=== PATIENT | female | born 1955 | race Caucasian/White ===

== ENCOUNTER 2019-01-27 10:15 | Inpatient (IN) ==
[2019-01-27] MEDS ORDERED: NS 1,000 ML IV ONE (10:20)
[2019-01-27] MEDS ORDERED: SOLU-MEDROL IV ONE (10:20)
[2019-01-27] MEDS ORDERED: ROCEPHIN 1 GM in NS 50 ML IV ONE (10:20)
[2019-01-27] MEDS ORDERED: DUONEB (A & A) INH ONE ×2 (10:20→10:55)
[2019-01-27] MEDS ORDERED: DUONEB (A & A) ONE (10:38)
[2019-01-27 10:49] LABS: BE 2.2 mmoll (-3.0-3.0); BLOOD TYPE ARTERIAL; HCO3-(ACT) 26.5 mmoll (20.0-26.0); METHB 1.2 % (0.0-1.5); O2(CT) 20.7 mL/dL (15.0-23.0); O2HB 93.4 % (95.0-99.0); PCO2(98.6) 35 mmHg (35-45); PO2(98.6) 73 mmHg (60-100); SAMPLE BLOOD; SAO2 96.1 % (95.0-100.0); THB 15.8 g/dL (11.5-17.4); pH(98.6) 7.47 (7.35-7.45)
[2019-01-27 10:51] LABS: ALLEN TEST YES; MODALITY CANNULA
[2019-01-27] MEDS ORDERED: PULMICORT INH ONE (10:55)
--- NOTE | 2019-01-27 11:01 | Diag Imaging Result Doc PS360 ---
EXAM: CHEST-PORTABLE 01/27/2019 HISTORY: cough TECHNIQUE: Erect AP portable at 1048 COMMENT: The inspiration is less optimal than on 10/26/2014. The opacity which was previously visible in the costophrenic angles has resolved. Otherwise are has been no significant change considering differences in technique. IMPRESSION: No acute disease. Electronically signed by Clyde Sandoval 01/27/2019 10:59 AM
[2019-01-27 11:04] LABS: BASO# 0.02 X1000 (0.0-0.2); BASO% 0.1 % (0.0-0.8); EOS# 0.06 X1000 (0.0-0.7); EOS% 0.4 % (0.0-10.0); HEMATOCRIT 44.5 % (37.0-47.0); HEMOGLOBIN 14.5 g/dL (12.0-16.0); IMM GRAN# 0.08 X1000 (0.0-0.04); IMM GRAN% 0.6 % (0.0-0.5); LYMPH# 2.41 X1000 (1.2-3.4); LYMPH% 17.6 % (20.5-51.1); MCH 29.8 PG (27-31); MCHC 32.6 g/dL (33-37); MCV 91.6 FL (81-99); MONO# 0.96 X1000 (0.11-0.59); MPV 9.5 FL (7.4-10.4); NEUT# 10.14 X1000 (1.4-6.5); NEUT% 74.3 % (42.2-75.2); PLT 385 X1000 (130-400); RBC 4.86 XMIL (4.2-5.4); RDW 12.7 % (11.5-14.5); WBC 13.67 X1000 (4.8-10.8)
[2019-01-27 11:25] LABS: AGAP 15; ALBUMIN 4.7 g/dL (3.5-5.0); ALKALINE PHOSPHATASE 132 U/L (32-104); BUN 21 mg/dL (8-22); CALCIUM 9.7 mg/dL (8.8-10.2); CHLORIDE 104 mmol/L (98-107); COSMO 287; CREATININE 0.7 mg/dL (0.5-0.9); ESTIMATED GFR > 60; GLUCOSE 106 mg/dL (70-104); GOT 15 U/L (10-30); GPT 15 U/L (10-36); POTASSIUM 3.9 mmol/L (3.5-5.1); SODIUM 142 mmol/L (136-145); TCO2 23 mmol/L (25-35); TOTAL PROTEIN 7.6 g/dL (6.3-8.3)
[2019-01-27] MEDS ORDERED: TYLENOL PO ONE (11:36)
--- NOTE | 2019-01-27 11:39 | PROVIDER DOCUMENTATION ---
This chart was entered by Kylie Nava Scribe, acting as scribe for Amelie Jewell MD. HPI-Respiratory General - General Stated Complaint: SOB Time Seen by Provider: 01/27/19 10:20 Source: patient Allergies/Adverse Reactions: Patient Allergies Allergy/AdvReac Type Severity Reaction Status Date / Time clarithromycin [From Biaxin] Allergy Intermediate RASH Verified 12/31/16 05:36 meperidine HCl * Allergy Intermediate RASH Verified 12/31/16 05:36 [From Demerol] nebivolol HCl * Allergy Intermediate RASH Verified 12/31/16 05:36 [From Bystolic] prochlorperazine edisylate * Allergy Intermediate RASH Verified 12/31/16 05:36 [From Compazine] prochlorperazine maleate * Allergy Intermediate RASH Verified 12/31/16 05:36 [From Compazine] nifedipine [From Procardia] Allergy SWELLING Verified 12/31/16 05:36 Sulfa (Sulfonamide Allergy RASH Verified 12/31/16 05:36 Antibiotics) Home Medications: Home Medication List Medication Instructions Recorded Confirmed Last Taken Type Diltiazem C.d. [Cardizem Cd] 240 mg PO DAILY 03/13/16 12/31/16 12/30/16 21:00 History Gabapentin 300 mg PO TID 03/13/16 12/31/16 12/30/16 21:00 History Pantoprazole [Protonix] 40 mg PO QHS 03/13/16 12/31/16 12/30/16 21:00 History Sertraline HCl [Zoloft] 100 mg PO BID 03/13/16 12/31/16 12/30/16 21:00 History Oxycodone HCl/Acetaminophen 1 each PO Q8H PRN PRN 12/29/16 12/31/16 12/30/16 14:00 History [Percocet 10-325 mg Tablet] Pregabalin [Lyrica] 75 mg PO BID 12/29/16 12/31/16 12/30/16 21:00 History Cyclobenzaprine [Flexeril] 10 mg PO Q8H PRN PRN #20 tablet 01/01/17 Unknown Rx Rivaroxaban [Xarelto] 10 mg PO DAILY@0600 #14 tablet 01/01/17 Unknown Rx - History of Present Illness-Resp Nature of Presenting Problem: Patient is a 63 year old female who presents with shortness of breath and cough. States symptoms stated 30 minutes ago. History of COPD. Reports she was recently diagnosed with bronchitis and COPD. States she is currently taking Levaquin, Medrol dose pack, and Albuterol breathing treatments. Quality of Pain: reports: none Severity in ED: reports: mild Onset/Duration: reports: 1/2 hour ago Timing: reports: still present Cough Quality/Degree: reports: moderate Current Respiratory Medication Therapy: Initiated see nurses note Associated Symptoms: reports: cough, shortness of breath Similar Symptoms Previously?: No Recently seen or treated by another doctor?: Yes Review of Systems - Adult - REVIEW OF SYSTEMS - ADULT ROS:: limited per condition Constitutional: reports: no symptoms reported Eyes: reports: no symptoms reported Ears, Nose, Mouth & Throat: reports: no symptoms reported Cardiovascular: reports: no symptoms reported Respiratory: reports: see HPI, cough, shortness of breath. denies: wheezing Gastrointestinal: reports: no symptoms reported Genitourinary: reports: no symptoms reported Musculoskeletal: reports: no symptoms reported Integumentary: reports: no symptoms reported Neurological: reports: no symptoms reported Psychiatric: reports: no symptoms reported Endocrine: reports: no symptoms reported Hematologic/Lymphatic: reports: no symptoms reported Allergic/Immunologic: reports: no symptoms reported All Other Systems: Reviewed and Negative Past History - Adult - PAST MEDICAL HISTORY-ADULT Review of Records: reports: Old Records Reviewed, Nursing Assessment Review, Medications Reviewed, Social history reviewed & non-contributory. Major Childhood Illnesses: reports: denies history Cardiovascular: reports: arrhythmia Respiratory: reports: denies history Gastrointestinal: reports: GERD Obstetrical/Gynecological: reports: denies history Genitourinary: reports: denies history Musculoskeletal: reports: denies history Neurological: reports: denies history Endocrine/Immune: reports: denies history Other Conditions: reports: denies history - PRIOR SURGERIES/PROCEDURES Surgical/Procedure History: reports: reviewed, not pertinent, cholecystectomy, hysterectomy - IMMUNIZATION STATUS Childhood Immunizations: See Nurse Assessment Flu Vaccine: See Nurse Assessment - FAMILY HISTORY Family History: reviewed, not pertinent - SOCIAL HISTORY Smoking: quit less than 1 year Substance Use: denies Physical Exam-General - PHYSICAL EXAM-ADULT Initial Vital Signs Reviewed: Yes - CONSTITUTIONAL General Appearance: alert, mild distress. negative: lethargic, obtunded - HEAD, EARS, NOSE, MOUTH & THROAT HENMT: normocephalic/atraumatic, moist mucous membranes. negative: angioedema - RESPIRATORY Respiratory: chest non-tender, respiratory distress (mild), wheezing (bilateral) . negative: accessory muscle use - CARDIOVASCULAR Cardiovascular: normal peripheral pulses, regular rate, rhythm. negative: tachycardia - GASTROINTESTINAL (ABDOMEN) Abdominal Exam: normal bowel sounds, non tender, soft. negative: guarding, rigid - MUSCULOSKELETAL Extremity: normal inspection. negative: erythema, tenderness - SKIN Integumentary: normal color, normal turgor, warm/dry. negative: cyanosis, pallor, rash - NEUROLOGIC Neurologic: grossly normal. negative: aphasia, facial droop - PSYCHIATRIC Psych/Mental Status: normal mood/affect, oriented x 3. negative: anxious Progress - PLAN OF CARE/RESULTS Progress/Plan/Lab Results: Vital Signs - 8 hr 01/27/19 10:16 01/27/19 10:25 01/27/19 11:02 Temperature 97.8 F Pulse Rate 96 H 100 H 86 Respiratory Rate 24 36 H 30 H Blood Pressure 160/90 O2 Sat by Pulse Oximetry 93 L 93 L Laboratory Results - last 24 hr 01/27/19 01/27/19 01/27/19 10:15 10:45 10:45 WBC 13.67 H RBC 4.86 Hgb 14.5 Hct 44.5 MCV 91.6 MCH 29.8 MCHC 32.6 L RDW Std Deviation 12.7 Plt Count 385 MPV 9.5 Immature Gran % (Auto) 0.6 H Neut % (Auto) 74.3 Lymph % (Auto) 17.6 L [place] % (Auto) 7.0 Eos % (Auto) 0.4 Baso % (Auto) 0.1 Immature Gran # (Auto) 0.08 H Neut # (Auto) 10.14 H Lymph # (Auto) 2.41 [place] # (Auto) 0.96 H Eos # (Auto) 0.06 Baso # (Auto) 0.02 Specimen Type ARTERIAL Sample Site L RADIAL pH 7.47 H pCO2 35 pO2 73 HCO3 26.5 H Base Excess 2.2 Oxyhemoglobin 93.4 L ABG O2 Sat (Calculated) 20.7 ABG O2 Saturation 96.1 ABG Carboxyhemoglobin 1.60 ABG Methemoglobin 1.2 Campbell Test YES A-a O2 Difference 83.0 Total Hemoglobin 15.8 Lactate 2.00 Liter Flow 2.0 Blood Gas Modality CANNULA FiO2 % 28.0 Sodium 142 Potassium 3.9 Chloride 104 Carbon Dioxide 23 L Anion Gap 15 BUN 21 Creatinine 0.7 Estimated GFR/1.73 m2 > 60 BUN/Creatinine Ratio 30 Glucose 106 H Calculated Osmolality 287 Calcium 9.7 Total Bilirubin 0.40 AST 15 ALT 15 Alkaline Phosphatase 132 H Total Protein 7.6 Albumin 4.7 Globulin 3.0 Albumin/Globulin Ratio 2.0 Plasma Lactate 01/27/19 10:45 WBC RBC Hgb Hct MCV MCH MCHC RDW Std Deviation Plt Count MPV Immature Gran % (Auto) Neut % (Auto) Lymph % (Auto) [place] % (Auto) Eos % (Auto) Baso % (Auto) Immature Gran # (Auto) Neut # (Auto) Lymph # (Auto) [place] # (Auto) Eos # (Auto) Baso # (Auto) Specimen Type Sample Site pH pCO2 pO2 HCO3 Base Excess Oxyhemoglobin ABG O2 Sat (Calculated) ABG O2 Saturation ABG Carboxyhemoglobin ABG Methemoglobin [place] Test A-a O2 Difference Total Hemoglobin Lactate Liter Flow Blood Gas Modality FiO2 % Sodium Potassium Chloride Carbon Dioxide Anion Gap BUN Creatinine Estimated GFR/1.73 m2 BUN/Creatinine Ratio Glucose Calculated Osmolality Calcium Total Bilirubin AST ALT Alkaline Phosphatase Total Protein Albumin Globulin Albumin/Globulin Ratio Plasma Lactate 2.2 Orders Category Date Time Status Oxygen Therapy- ED Nursing DIRECTED Care 01/27/19 10:35 Active Saline Loc NOW Care 01/27/19 10:20 Active CHEST-PORTABLE [RAD] Stat Exams 01/27/19 10:20 Completed ABG [RESP] Routine Lab 01/27/19 10:15 Completed BLOOD CULTURE [BLDCUL] Stat Lab 01/27/19 11:06 Ordered CBC WITH DIFF [HEME] Stat Lab 01/27/19 10:45 Completed COMPREHENSIVE METABOLIC PANEL [CHEM] Stat Lab 01/27/19 10:45 Completed LACTATE, PLASMA [CHEM] Stat Lab 01/27/19 10:45 Completed SPUTUM CULTURE WITH GRAM STAIN [RM] Routine Lab 01/27/19 11:06 Ordered 0.9% Sodium Chloride Inj [Ns] 1,000 ml Med 01/27/19 10:20 Discontinued IV 999 mls/hr Acetaminophen [Tylenol] Med 01/27/19 11:36 Discontinued 1,000 mg PO NOW ONE Albuterol 2.5MG/Ipratrop 0.5MG [Duoneb (A & A)] Med 01/27/19 10:20 Discontinued 3 ml INH NOW ONE Albuterol 2.5MG/Ipratrop 0.5MG [Duoneb (A & A)] Med 01/27/19 10:38 Discontinued 6 ml .ROUTE .STK-MED ONE Albuterol 2.5MG/Ipratrop 0.5MG [Duoneb (A & A)] Med 01/27/19 10:55 Discontinu ed 6 ml INH NOW ONE Budesonide [Pulmicort] Med 01/27/19 10:55 Discontinued 0.5 mg INH NOW ONE CefTRIAXONE [Rocephin] 1 gm Med 01/27/19 10:20 Discontinued 0.9% Sodium Chloride Inj [Ns] 50 ml IV NOW Methylprednisolone Sod Succ [Solu-Medrol] Med 01/27/19 10:20 Discontinued 125 mg IV NOW ONE Aerosol Treatments Routine Oth 01/27/19 10:21 Completed Aerosol Treatments Stat Oth 01/27/19 10:21 Completed Aerosol Treatments Stat Oth 01/27/19 10:55 Completed Pulse Oximetry Stat Oth 01/27/19 10:20 Completed Transfer/Admit Order [TRANSFER] Routine Transfer 01/27/19 11:35 Ordered Result Diagrams: 01/27/19 10:45 01/27/19 10:45 - REASSESSMENT Reassessment #1 Time Reassessed: 11:32 Status: improving (patient states she feels better. patient declined going to [place]. patient states she wants to stay in [place].) - EKG 1 Time of EKG reading by physician:: 10:21 EKG Read and Signed by:: Amelie Jewell EKG Interpretation (*Must complete 3 of following elements*): Normal Rate: 94 Rhythm: normal sinus rhythm with sinus arrhythmia [place]: normal [place] Interval: normal Comments: normal ECG - XRAY 1 XRAY Study: Chest Impression: See EMR Report ( EXAM: CHEST-PORTABLE 01/27/2019 HISTORY: cough TECHNIQUE: Erect AP portable at 1048 COMMENT: The inspiration is less optimal than on 10/26/2014. The opacity which was previously visible in the costophrenic angles has resolved. Otherwise are has been no significant change considering differences in technique. IMPRESSION: No acute disease. Electronically signed by Clyde Sandoval 01/27/2019 10:59 AM 01/27/19 1059 Interpreting Physician: Clyde Sandoval MD Dictated Date/Time: 01/27/19 1058 cc: Amelie Jewell MD; None,PCP) - CONSULTS/PCP/HOSPITALIST Notification #1 *Consult/PCP/Hospitalist*: Dr. Lua Time Discussed: 11:35 Reason/Comments: Dr. Jewell consulted with Dr. Lua about patient. Consult Disposition: Admit Departure - Departure Date of Disposition Decision: 01/27/19 Time of Disposition Decision: 11:38 DIAGNOSIS: COPD (chronic obstructive pulmonary disease) Qualifiers: COPD type: unspecified COPD Qualified Code(s): J44.9 - Chronic obstructive pulmonary disease, unspecified Disposition: ADMITTED INPATIENT 09 Certified Medical Emergency: Emergent Condition: Serious Referrals and Follow-Ups: None,PCP [Primary Care Provider] - - Critical Care Note This patient required my direct & personal management of CC.: No Attestation - Physician/ OLVIN Attestation Patient care was provided by Advanced Practice Provider:: No The physician spent face to face time with patient:: Yes Advanced Practice Provider documentation review:: Supervising physician onsite and consulted in the evaluation and care of this patient. The physician did have a face to face encounter with the patient. This chart was documented by the indicated scribe, (Kylie Nava Scribe) and accurately reflects the services I performed and decisions made by me, Amelie Jewell MD, as attested by the provider's signature.
[2019-01-27] MEDS ORDERED: ZOFRAN IV PRN (12:24)
[2019-01-27] MEDS ORDERED: TYLENOL PO PRN (12:24)
--- NOTE | 2019-01-27 13:46 | EKG Report ---
Test Performed on : 01/27/2019 10:21:35 AM Test Reason : ER Blood Pressure : / mmHG Vent. Rate : 094 BPM Atrial Rate : 094 BPM P-R Int : 132 ms QRS Dur : 072 ms QT Int : 364 ms P-R-T Axes : 078 046 072 degrees QTc Int : 455 ms Normal sinus rhythm. with sinus arrhythmia. Normal ECG When compared with ECG of 29-DEC-2016 09:19, Vent. rate has increased BY 31 BPM Unconfirmed Result
[2019-01-27] MEDS ORDERED: ROCEPHIN 1 GM in NS 50 ML IV SCH ×2 (15:45→16:00)
[2019-01-27] MEDS: PERCOCET-10 PO PRN ×2 (15:52→23:58)
[2019-01-27] MEDS: DUONEB (A & A) INH SCH ×3 (16:04→22:45)
[2019-01-27] MEDS ORDERED: ZITHROMAX 500 MG/NS 500 MG/250 ML IVPB IV SCH (17:00)
[2019-01-27] MEDS: SOLU-MEDROL IV SCH (18:09)
--- NOTE | 2019-01-27 19:58 | HISTORY AND PHYSICAL ---
PRIMARY CARE PHYSICIAN: None. CHIEF COMPLAINT: Shortness of breath and a cough that began 30 minutes prior to arrival, but also states she was recently diagnosed with a COPD and bronchitis exacerbation. HISTORY OF PRESENTING ILLNESS: This is a 63-year-old female who presents to [facility] ER with complaints of shortness of breath and a cough that began approximately 30 minutes prior to arriving. She was recently diagnosed with a bronchitis, was placed on Levaquin, a Medrol Dosepak and albuterol breathing treatments, but has not seen much improvement in her symptoms. The shortness of breath worsened about 30 minutes prior to arriving. She was saturating 93% on 2 L. White blood cell count was 13.67. Her chest x-ray showed no acute disease. So, she will be admitted for a COPD exacerbation for further evaluation and treatment. PAST MEDICAL HISTORY: Of a sinus arrhythmia, COPD, PTSD, biliary colic, GERD, and bronchitis. PAST SURGICAL HISTORY: Hysterectomy, cholecystectomy, bilateral knee arthroscopy, a right shoulder arthroscopy and multiple benign breast tumor removals. FAMILY HISTORY: Her father of lung cancer at 61 and mother of Alzheimer's at 87. SOCIAL HISTORY: She currently lives with her . States that she stop smoking 2 weeks ago but smoked a pack of cigarettes a day and has done so for the past 49 years. Denies any alcohol or illicit drug use. ALLERGIES: To Compazine, Demerol, Bystolic, sulfa, Procardia and Biaxin. HOME MEDICATIONS: She takes Cardizem CD 240 mg p.o. at bedtime, Protonix 40 mg p.o. at bedtime, Zoloft 100 mg p.o. b.i.d., Chantix 1 mg p.o. b.i.d., and Percocet 10 one p.o. q.8 hours p.r.n. LABORATORY DATA: Showed a white blood cell count of 13.67, hemoglobin 14.5, hematocrit 44.5, platelets 385,000. ABG with a pH of 7.47, pCO2 of 35, PO2 73, bicarb 26.5, and this was on 2 L via nasal cannula. Sodium 142, potassium 3.9, chloride 104, CO2 23, BUN of 21, creatinine 0.7, glucose 106. Plasma lactate of 2.2. EKG: Normal sinus rhythm with a sinus arrhythmia at 94. Chest x-ray showed no acute disease. REVIEW OF SYSTEMS: She denied any fever, chills, blurred vision, dizziness. She was positive for shortness of breath and a nonproductive cough. Denied any abdominal pain, constipation, diarrhea, burning or hurting with urination. PHYSICAL EXAMINATION: VITAL SIGNS: On arrival she had a temperature of 97.8 degrees, pulse 96, respirations 24, blood pressure 160/90, saturating 93% on 2 L. GENERAL: This is a 63-year-old female who is lying in the bed and answers questions appropriately. HEENT: Normocephalic, atraumatic. Normal ENT inspection. Oropharynx and nares are clear. EYES: Pupils are equal, round, reactive to light and accommodation. Extraocular movements are intact. NECK: Normal inspection. Normal range of motion. LUNGS: With rhonchi and wheezing throughout posterior lung benoit. Equal lung expansion. Chest wall movement noted. O2 via nasal cannula currently in use. HEART: Regular rate and rhythm. No murmurs, rubs, or gallops. ABDOMEN: Soft, nontender, nondistended. Bowel sounds are present x4 quadrants. MUSCULOSKELETAL: She had 5/5 strength x4 extremities. NEUROLOGICAL: The cranial nerves 2-12 appear grossly intact. ASSESSMENT: 1. An acute chronic obstructive pulmonary disease exacerbation with failed outpatient treatment. 2. Mild leukocytosis, which may be secondary to her previous steroid use. 3. Tobacco abuse. PLAN: She will be admitted to the medical unit, placed on telemetry, O2 per protocol, incentive spirometry, CPT routine. Sputum culture and blood cultures x2 are pending. We will place her on Rocephin 1 gram IV q.24, azithromycin 500 IV q.24, Solu-Medrol 80 mg IV q.8 hours and will wean as she improves. We will recheck a CBC and BMP in the a.m. and further orders after seen by attending. Dictated by KELLEY Butler for Dontae Lua MD cc: KELLEY Butler MD
--- NOTE | 2019-01-27 20:30 | HISTORY AND PHYSICAL ---
Patient came in with shortness of breath for the last several days, COPD history. She has been on Levaquin, Medrol. There was some discussion that she had a productive cough, but she denies a productive cough. That is also what she told the nurse practitioner. So, in any case, she is a patient of Dr. Pearson, but she wanted to be admitted here. 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 In any case, she will be admitted for COPD exacerbation, bronchitis, breathing treatments, steroids, IV antibiotics. We will follow clinically. She does have significant wheezing on exam. We have encouraged cessation of smoking. Continue regular medicines and follow. cc: MD Dr. Michel Chicas
[2019-01-27] MEDS: ZOLOFT PO SCH (22:11)
[2019-01-27] MEDS: PROTONIX PO SCH (22:11)
[2019-01-27] MEDS: CARDIZEM CD PO SCH (22:11)
[2019-01-27] MEDS: PATIENT'S OWN MED PO SCH (22:12)
[2019-01-28] MEDS: DUONEB (A & A) INH SCH ×6 (02:34→22:42)
[2019-01-28] MEDS: SOLU-MEDROL IV SCH ×4 (03:12→17:13)
[2019-01-28 07:23] LABS: AGAP 13; BUN 16 mg/dL (8-22); CALCIUM 9.5 mg/dL (8.8-10.2); CHLORIDE 106 mmol/L (98-107); COSMO 288; CREATININE 0.6 mg/dL (0.5-0.9); ESTIMATED GFR > 60; GLUCOSE 240 mg/dL (70-104); POTASSIUM 3.7 mmol/L (3.5-5.1); SODIUM 140 mmol/L (136-145); TCO2 21 mmol/L (25-35)
[2019-01-28 07:25] LABS: BASO# 0.01 X1000 (0.0-0.2); EOS# 0.01 X1000 (0.0-0.7); HEMATOCRIT 40.7 % (37.0-47.0); HEMOGLOBIN 13.1 g/dL (12.0-16.0); IMM GRAN% 0.5 % (0.0-0.5); LYMPH# 0.99 X1000 (1.2-3.4); LYMPH% 4.7 % (20.5-51.1); MCH 30.1 PG (27-31); MCHC 32.2 g/dL (33-37); MCV 93.6 FL (81-99); MONO# 0.54 X1000 (0.11-0.59); MONO% 2.5 % (1.7-9.3); NEUT# 19.57 X1000 (1.4-6.5); NEUT% 92.3 % (42.2-75.2); PLT 293 X1000 (130-400); RBC 4.35 XMIL (4.2-5.4); RDW 12.8 % (11.5-14.5); WBC 21.22 X1000 (4.8-10.8)
[2019-01-28] MEDS: PATIENT'S OWN MED PO SCH ×2 (08:51→20:38)
[2019-01-28] MEDS: ROCEPHIN 1 GM in NS 50 ML IV SCH ×2 (08:51→13:09)
[2019-01-28] MEDS: ZOLOFT PO SCH ×2 (08:52→20:37)
[2019-01-28] MEDS: PERCOCET-10 PO PRN ×2 (08:52→16:44)
[2019-01-28 09:02] LABS: BANDS 1 % (0-1); LYMPHS 5 % (21-51); MONO 2 % (1-9); SEGS 92 % (42-75)
[2019-01-28] MEDS ORDERED: EXCEDRIN MIGRAINE PO ONE (10:55)
[2019-01-28] MEDS: ROBITUSSIN PO PRN ×2 (13:25→20:37)
[2019-01-28] MEDS ORDERED: TORADOL IV ONE (16:41)
[2019-01-28] MEDS ORDERED: FIORICET PO PRN (16:41)
[2019-01-28] MEDS: CARDIZEM CD PO SCH (20:37)
[2019-01-28] MEDS: PROTONIX PO SCH (20:37)
[2019-01-28] MEDS: TORADOL IV PRN (23:25)
[2019-01-29] MEDS: SOLU-MEDROL IV SCH ×2 (00:36→09:06)
[2019-01-29] MEDS: PERCOCET-10 PO PRN ×2 (01:04→09:06)
[2019-01-29] MEDS: DUONEB (A & A) INH SCH ×3 (02:48→11:23)
[2019-01-29 07:59] VITALS: BP 139/66
[2019-01-29] MEDS: TORADOL IV PRN (09:06)
[2019-01-29] MEDS: PATIENT'S OWN MED PO SCH (09:06)
[2019-01-29] MEDS: ZOLOFT PO SCH (09:06)
--- NOTE | 2019-01-30 08:23 | DISCHARGE SUMMARY ---
ADMISSION DATE: 01/27/2019 DISCHARGE DATE: 01/29/2019 PRIMARY CARE PHYSICIAN: None. ADMISSION DIAGNOSES: 1. Acute chronic obstructive pulmonary disease exacerbation with failed outpatient treatment. 2. Mild leukocytosis which may be secondary to her previous steroid use. 3. Tobacco abuse. DISCHARGE DIAGNOSES: 1. Acute chronic obstructive pulmonary disease exacerbation with failed outpatient treatment. 2. Mild leukocytosis which may be secondary to her previous steroid use. 3. Tobacco abuse. SUMMARY OF FINDINGS: This is a 63-year-old female who presented to the Emergency Room with complaints of shortness of breath and a cough that worsened over the 30 minutes prior to arriving but had recently been diagnosed with a bronchitis and had been placed on Levaquin and a Medrol Dosepak along with some albuterol breathing treatments but did not see much improvement in her symptoms. She was sating 93% on 2 L when she arrived. Her white blood cell count was 13.67 but again that is most likely because of her previous steroid use. Chest x-ray showed no acute disease. She was admitted and placed on O2 per protocol, incentive spirometry, CPT, IV antibiotics, and IV steroids, weaned as she improves. She is feeling much better now, sating 94% on room air, and it is now felt that she can safely be discharged home. DISCHARGE MEDICATIONS: Included her Cardizem CD 240 mg p.o. nightly at bedtime, oxycodone 10 mg 1 p.o. every 8 hours p.r.n., pantoprazole 40 mg p.o. nightly at bedtime, Sertraline 100 mg p.o. b.i.d., Chantix 1 mg p.o. b.i.d., DuoNebs every 6 hours, Omnicef 300 mg p.o. b.i.d. #10 with no refills, and a Medrol Dosepak to take as directed. FOLLOW UP: She will need to follow up with her primary care physician, Dr. Pearson, as soon as she gets listed even though we did not know that when she first came in to see him in 1 to 2 weeks and call the office for an appointment. TIME SPENT ON DISCHARGE: 35 minutes. Dictated by KELLEY Butler for Dontae Lua MD cc: KELLEY Butler MD Dr. Pearson
--- NOTE | 2019-01-31 04:14 | DISCHARGE SUMMARY ---
ADMISSION DATE: 01/27/2019 DISCHARGE DATE: 01/29/2019 HOSPITAL COURSE: The patient is breathing more comfortably today. No wheezing. No rales. Blood pressure is stable, 148/62. She did not desaturate or qualify for home O2. She was felt stable for discharge and was discharged on cefdinir, Medrol Dosepak, and DuoNebs. cc: MD Dr. Michel Chiacs
== END 2019-01-29 12:04 | disposition home or self-care (01) | DRG 192 ==
LOC: P.ED 10:15 → P.MEDSURG 12:06 → SUATTDRO 12:21
PROVIDERS: ADMIT Internal Medicine; ATTEND Internal Medicine